=== PATIENT | female | born 1995 | race Two or more races ===

== ENCOUNTER 2019-02-10 20:50 | Emergency (ER) | payer OTHER ==
[~2019-02-10] VITALS: Ht 160 cm; Wt 63.5 kg
[2019-02-10] MEDS: KETOROLAC 30 MG/ML VIAL. IV ONE (21:37)
--- NOTE | 2019-02-10 21:37 | PHYS DOC ---
Past History Past Medical History: No Pertinent History Past Surgical History: No Surgical History Alcohol Use: None Drug Use: None Adult General Chief Complaint Chief Complaint: HEADACHE HPI HPI Patient is a 23-year-old female who presents with numerous complaints to include headache, dizziness and generalized weakness. Patient states the symptoms started this morning. Patient states her last menstrual cycle was early this month and admits that she could be . She rates pain in her head is mild at a 3 out of 10. She states that what had her concerned that she felt like she was going to faint earlier today. She does admit some nausea but is had no vomiting or diarrhea.[] Review of Systems Review of Systems Constitutional: Denies fever or chills [] Respiratory: Denies cough or shortness of breath [] Cardiovascular: No additional information not addressed in HPI [] GI: Denies abdominal pain, vomiting or diarrhea [] : Denies dysuria or hematuria [] Neurologic: Complains of headache without focal weakness or sensory changes [] Current Medications Current Medications Current Medications Medications (Trade) Dose Ordered Sig/Oly Start Time Stop Time Status Last Admin Dose Admin Ketorolac Tromethamine (Toradol 30mg Vial) 30 mg 1X ONCE 02/10/19 21:15 02/10/19 21:16 UNV Ondansetron HCl (Zofran) 4 mg 1X ONCE 02/10/19 21:15 02/10/19 21:16 UNV Sodium Chloride 1,000 ml @ 1,000 mls/hr Q1H 02/10/19 21:15 02/10/19 22:14 UNV Allergies Allergies Allergies Coded Allergies Type Severity Reaction Last Updated Verified Sulfa (Sulfonamide Antibiotics) Allergy Severe Anaphylaxis 02/10/19 Yes Physical Exam Physical Exam Constitutional: Well developed, well nourished, no acute distress, non-toxic appearance. [] Neck: Normal range of motion, no tenderness, supple, no stridor. [] Cardiovascular:Heart rate regular rhythm, no murmur [] Lungs & Thorax: Bilateral breath sounds clear to auscultation [] Abdomen: Bowel sounds normal, soft, no tenderness. [] Skin: Warm, dry, no erythema, no rash. [] Extremities: No tenderness, no cyanosis, no clubbing, ROM intact, no edema. [] Neurologic: Alert and oriented X 3, no focal deficits noted. [] Current Patient Data Vital Signs Vital Signs Date Time Temp Pulse Resp B/P (MAP) Pulse Ox O2 Delivery O2 Flow Rate FiO2 02/10/19 21:07 98.5 83 18 100 Room Air EKG EKG [] Radiology/Procedures Radiology/Procedures [] Course & Med Decision Making Course & Med Decision Making Pertinent Labs and Imaging studies reviewed. (See chart for details) [] Dragon Disclaimer Dragon Disclaimer This electronic medical record was generated, in whole or in part, using a voice recognition dictation system. Departure Departure: Impression: Primary Impression: Headache Additional Impressions: Back pain Dehydration Disposition: HOME, SELF-CARE Condition: STABLE Referrals: PCP,UNKNOWN (PCP) Patient Instructions: Back Pain, Adult, [id number], Dehydration, Adult, Headache, FAQs Scripts Tramadol Hcl (TRAMADOL HCL) 50 Mg Tablet 50 MG PO PRN Q6HRS PRN for PAIN, #12 TAB Prov: MICHAEL IBRAHIM Jr. DO 02/10/19 Ondansetron Hcl (ZOFRAN) 4 Mg Tablet 4 MG PO Q6HRS PRN for NAUSEA, #12 TAB Prov: MICHAEL IBRAHIM Jr. DO 02/10/19 Problem Qualifiers Primary Impression: Headache Headache type: unspecified Headache chronicity pattern: unspecified pattern Intractability: not intractable Qualified Codes: R51 - Headache Additional Impressions: Back pain Back pain location: thoracic back pain Chronicity: acute Back pain laterality: unspecified Qualified Codes: M54.6 - Pain in thoracic spine MICHAEL IBRAHIM Jr. DO Feb 10, 2019 21:37
[2019-02-10] MEDS: IV NORMAL SALINE 1,000ML 1,000 ML IV SCH (21:38)
[2019-02-10] MEDS: ONDANSETRON PF 4 MG/2 ML VIAL. IV ONE (21:40)
[2019-02-10 22:28] LABS: BASO # 0.1 x10^3/uL (0.0-0.2); BASO % 1 % (0-3); EOS # 0.5 x10^3/uL (0.0-0.7); EOS % 6 % (0-3); HEMOGLOBIN 14.4 g/dL (12.0-15.5); LYMPH # 3.7 x10^3/uL (1.0-4.8); LYMPH % 44 % (24-48); MEAN CORPUSCULAR HEMOGLOBIN 30 pg (25-35); MEAN CORPUSCULAR HGB CONC 33 g/dL (31-37); MEAN CORPUSCULAR VOLUME 88 fL (79-100); MONO # 0.6 x10^3/uL (0.0-1.1); MONO % 7 % (0-9); NEUT # 3.5 x10^3uL (1.8-7.7); NEUT % 43 % (31-73); PLATELET COUNT 185 x10^3/uL (140-400); RED BLOOD COUNT 4.87 x10^6/uL (3.50-5.40); RED CELL DISTRIBUTION WIDTH 12.4 % (11.5-14.5); WHITE BLOOD COUNT 8.3 x10^3/uL (4.0-11.0)
[2019-02-10 22:40] LABS: ALBUMIN/GLOBULIN RATIO 1.1 (1.0-1.7); CALCIUM 9.5 mg/dL (8.5-10.1); CREATININE 0.8 mg/dL (0.6-1.0); GFR 90.5; POTASSIUM 3.5 mmol/L (3.5-5.1); TOTAL BILIRUBIN 0.2 mg/dL (0.2-1.0); TOTAL PROTEIN 7.7 g/dL (6.4-8.2)
[2019-02-10 22:48] LABS: BILIRUBIN,URINE NEG (NEG); CLARITY,URINE CLEAR; COLOR,URINE STRAW; GLUCOSE,URINE NEG (NEG)
[2019-02-10 22:49] LABS: BACTERIA,URINE 0 /HPF (0-FEW); NITRITE,URINE NEG (NEG); RBC,URINE 0 /HPF (0-2); SQUAMOUS EPITHELIAL CELL,UR OCC /LPF; UROBILINOGEN,URINE 0.2 mg/dL (0.2 mg/dL); WBC,URINE OCC /HPF (0-4)
[2019-02-10 22:51] LABS: PREG TEST PT QUAL NEGATIVE (NEG)
[2019-02-10 23:07] VITALS: BP 104/68
[2019-02-10] MEDS ORDERED: ONDA4TAB7 PO (23:10)
[2019-02-10] MEDS ORDERED: TRAM50TA PO (23:10)
== END 2019-02-10 23:23 | disposition home or self-care (01) ==
LOC: ER 20:50
DX: R51 Headache (principal); E86.0 Dehydration; M54.6 Pain in thoracic spine; Z88.2 Allergy status to sulfonamides
CPT/HCPCS: 36415; 80053; 81001; 83690; 84703; 85025; 96361; 96374; 96375; 99284; J1885; J2405; J7030

== ENCOUNTER 2019-05-27 17:25 | Emergency (ER) | payer OTHER ==
[~2019-05-27 17:25] MED LIST: ONDA4TAB7 PO; TRAM50TA PO
[2019-05-27] MEDS ORDERED: IV NORMAL SALINE 500ML 500 ML IV SCH (18:15)
--- NOTE | 2019-05-27 18:16 | PHYS DOC ---
Past History Past Medical History: No Pertinent History Past Surgical History: No Surgical History Smoking: Non-smoker Alcohol Use: None Drug Use: None Adult General Chief Complaint Chief Complaint: VAGINAL PROBLEM HPI HPI Patient is a 23-year-old female presents with sudden onset pelvic pain approximately 2 hours prior to arrival. No bleeding or discharge. She is approximately 8 weeks . She had an ultrasound performed at her ANESTHESIOLOGY TECHNOLOGIST office yesterday and the size was not consistent with dates, and there was no heartbeat noted at that time. She denies any trauma. Denies any dysuria or hematuria. This is her first . She is uncertain as to her blood type. No relief with Tylenol for the pain.[] Review of Systems Review of Systems Constitutional: Denies fever or chills [] Eyes: Denies change in visual acuity, redness, or eye pain [] HENT: Denies nasal congestion or sore throat [] Respiratory: Denies cough or shortness of breath [] Cardiovascular: No chest pain or palpitations[] GI: Denies abdominal pain, nausea, vomiting, bloody stools or diarrhea [] : Denies dysuria or hematuria, see history of present illness [] Musculoskeletal: Denies back pain or joint pain [] Integument: Denies rash or skin lesions [] Neurologic: Denies headache, focal weakness or sensory changes [] Endocrine: Denies polyuria or polydipsia [] All other systems were reviewed and found to be within normal limits, except as documented in this note. Allergies Allergies Allergies Coded Allergies Type Severity Reaction Last Updated Verified Sulfa (Sulfonamide Antibiotics) Allergy Severe Anaphylaxis 02/10/19 Yes Physical Exam Physical Exam Constitutional: Well developed, well nourished, no acute distress, non-toxic appearance. [] HENT: Normocephalic, atraumatic, bilateral external ears normal, oropharynx rylan st, no oral exudates, nose normal. [] Eyes: PERRLA, EOMI, conjunctiva normal, no discharge. [] Neck: Normal range of motion, no tenderness, supple, no stridor. [] Cardiovascular:Heart rate regular rhythm, no murmur [] Lungs & Thorax: Bilateral breath sounds clear to auscultation [] Abdomen: Bowel sounds normal, soft, no tenderness, no masses, no pulsatile masses. Pelvic exam performed with job placement counselor: External genitalia, [place]'s glands, urethra, and Bartholin's glands: No lesions, no discharge. Vaginal vault: No bleeding, no lesions, no tears. Cervix: No cervical motion tenderness, no nulliparous os, no bleeding[] Skin: Warm, dry, no erythema, no rash. [] Back: No tenderness, no CVA tenderness. [] Extremities: No tenderness, no cyanosis, no clubbing, ROM intact, no edema. [] Neurologic: Alert and oriented X 3, normal motor function, normal sensory function, no focal deficits noted. [] Psychologic: Affect normal, judgement normal, mood normal. [] EKG EKG [] Radiology/Procedures Radiology/Procedures PROCEDURE: OB <14 WKS W/TV Examination: OB <14 WKS W/TV History: Sudden onset of pelvic pain in the past 2 hours. Comparison/Correlation: None Findings: Transabdominal and transvaginal pelvic ultrasound exam was performed. Uterus measures 8 cm x 7.6 x 6.2 cm. Cervical length is 3.2 cm. Single intrauterine gestation is present without heart rate identified. [place]-rump length of 0.46 cm corresponds 6 weeks 1 day gestation. Yolk sac identified. No subchorionic hemorrhage. Right ovary measures 3 cm x 2.4 cm x 1.4 cm. Left ovary measures 2.7 cm x 1.89 x 1.6 cm. No suspicious adnexal mass lesions. Normal ovarian flow noted on spectral and color Doppler imaging. Impression: Intrauterine gestation corresponding to 6 weeks 1 day by crown-rump length without detectable heart rate. Nonviable gestation. [] Course & Med Decision Making Course & Med Decision Making Pertinent Labs and Imaging studies reviewed. (See chart for details) ED course: Patient arrived, was placed in bed, and tolerated exam well. She was transported to and from [facility] without any complications. After return of laboratory and imaging studies, these were discussed with patient and her partner who voiced understanding. All questions were answered. She was discharged in improved condition. Medical decision making: This appears to be an inevitable miscarriage given that there is no heart motion detectable. There is no evidence of a septic miscarriage. No evidence of an ectopic . No evidence of urinary tract infection.[] Dragon Disclaimer Dragon Disclaimer This electronic medical record was generated, in whole or in part, using a voice recognition dictation system. Departure Departure: Impression: Primary Impression: Miscarriage Disposition: HOME, SELF-CARE Condition: IMPROVED Referrals: PCP,UNKNOWN (PCP) Patient Instructions: Miscarriage Additional Instructions: Follow-up with your ANESTHESIOLOGY TECHNOLOGIST in 2 days. Your quantitative test level was 39,282 today. This needs to be followed as it goes to 0. This can be performed by your ANESTHESIOLOGY TECHNOLOGIST. Your blood type is O+. Return to the ER if worsening pain or any other concerns. Scripts Hydrocodone Bit/Acetaminophen (NORCO 5-325 TABLET) 1 Each Tablet 1 TAB PO Q4-6HRS for severe pain, #20 TAB Prov: ISAURO NASH DO 05/27/19 ISAURO NASH DO May 27, 2019 18:16
[2019-05-27 18:54] LABS: BASO % 1 % (0-3); EOS # 0.3 x10^3/uL (0.0-0.7); EOS % 4 % (0-3); HEMATOCRIT 39.2 % (36.0-47.0); HEMOGLOBIN 13.1 g/dL (12.0-15.5); LYMPH # 2.2 x10^3/uL (1.0-4.8); LYMPH % 29 % (24-48); MEAN CORPUSCULAR HEMOGLOBIN 30 pg (25-35); MEAN CORPUSCULAR HGB CONC 34 g/dL (31-37); MEAN CORPUSCULAR VOLUME 89 fL (79-100); MONO # 0.5 x10^3/uL (0.0-1.1); MONO % 7 % (0-9); NEUT # 4.6 x10^3uL (1.8-7.7); NEUT % 60 % (31-73); PLATELET COUNT 205 x10^3/uL (140-400); WHITE BLOOD COUNT 7.8 x10^3/uL (4.0-11.0)
[2019-05-27 19:44] LABS: BILIRUBIN,URINE NEG (NEG); CLARITY,URINE CLEAR; COLOR,URINE YELLOW; GLUCOSE,URINE NEG (NEG)
[2019-05-27 19:45] LABS: BACTERIA,URINE 0 /HPF (0-FEW); NITRITE,URINE NEG (NEG); RBC,URINE OCC /HPF (0-2); SQUAMOUS EPITHELIAL CELL,UR FEW /LPF; UROBILINOGEN,URINE 0.2 mg/dL (0.2 mg/dL)
--- NOTE | 2019-05-27 20:04 | RAD ---
Examination: OB <14 WKS W/TV History: Sudden onset of pelvic pain in the past 2 hours. Comparison/Correlation: None Findings: Transabdominal and transvaginal pelvic ultrasound exam was performed. Uterus measures 8 cm x 7.6 x 6.2 cm. Cervical length is 3.2 cm. Single intrauterine gestation is present without heart rate identified. [place]-rump length of 0.46 cm corresponds 6 weeks 1 day gestation. Yolk sac identified. No subchorionic hemorrhage. Right ovary measures 3 cm x 2.4 cm x 1.4 cm. Left ovary measures 2.7 cm x 1.89 x 1.6 cm. No suspicious adnexal mass lesions. Normal ovarian flow noted on spectral and color Doppler imaging. Impression: Intrauterine gestation corresponding to 6 weeks 1 day by crown-rump length without detectable heart rate. Nonviable gestation. Electronically signed by: Marino Carnes MD (05/27/2019 8:01 PM) [facility]
[2019-05-27] MEDS ORDERED: HYDR-3165 PO (20:29)
[2019-05-27 20:42] VITALS: BP 99/62
== END 2019-05-27 20:42 | disposition home or self-care (01) ==
LOC: ER 17:25
DX: O03.9 Complete or unspecified spontaneous abortion without complication (principal); Z88.2 Allergy status to sulfonamides
CPT/HCPCS: 36415; 76801; 76817; 81001; 81025; 84702; 85025; 86900; 86901; 87491; 87591; 99285; Q0111

== ENCOUNTER 2020-04-04 16:29 | Emergency (ER) | payer OTHER ==
[~2020-04-04] VITALS: Ht 160 cm; Wt 63.6 kg
[~2020-04-04 16:29] MED LIST changes: +HYDR-3165 PO
--- NOTE | 2020-04-04 17:11 | PHYS DOC ---
Past History Past Medical History: No Pertinent History Past Surgical History: No Surgical History Smoking: Non-smoker Alcohol Use: None Drug Use: None General Adult EDM: Chief Complaint: TEST HPI: HPI: Patient is a 24 year old F who presents with 2 weeks of fatigue, nausea, head ache, and muscle aches. She denies fever or chills. She states she has been taking aspirin for her head pain and it has helped. Her last menstrual period was 03/07-03/10 and she recently stopped taking her control. She also complains of a productive cough that began 4 days ago. She states she is coughing a few times per day. She complains of 2 days of hard and sensitive breasts and crampy lower abdominal pain. She denies dysuria, frequency, and vaginal discharge. Review of Systems: Review of Systems: Constitutional: Denies fever or chills Eyes: Denies redness or eye pain HENT: Denies nasal congestion or sore throat Respiratory: Denies shortness of breath; reports cough. Cardiovascular: Denies chest pain or palpitations GI: Denies vomiting; reports abdominal pain and nausea. : Denies dysuria or hematuria Musculoskeletal: Denies back pain or joint pain Integument: Denies rash or skin lesions Neurologic: Denies focal weakness or sensory changes Complete systems were reviewed and found to be within normal limits, except as documented in this note. Allergies: Allergies: Allergies Coded Allergies Type Severity Reaction Last Updated Verified Sulfa (Sulfonamide Antibiotics) Allergy Severe Anaphylaxis 02/10/19 Yes Physical Exam: PE: Constitutional: Well developed, well nourished, no acute distress. HENT: Normocephalic, atraumatic Eyes: Conjunctiva normal, no discharge Neck: Normal range of motion, supple Lungs & Thorax: No respiratory distress, equal chest rise and fall. CTAB. Abdomen: Soft, mildly tender to palpation in both lower quadrants. Skin: Warm, dry, no erythema, no rash Back: Paraspinal tenderness in lumbar region, no CVA tenderness Extremities: No tenderness, no edema Neurologic: Alert and oriented X 3, no focal deficits noted Psychologic: Affect normal, judgment normal EKG: EKG: [] Radiology/Procedures: Radiology/Procedures: [] Course & Med Decision Making: Course & Med Decision Making 24-year-old female presented here for 2 weeks duration of fatigue, nausea, headache, and muscle aches. test negative. pertinent Labs and Imaging studies reviewed. (See chart for details) [] Dragon Disclaimer: Dragon Disclaimer: This electronic medical record was generated, in whole or in part, using a voice recognition dictation system. Departure Departure: Impression: Primary Impression: Sinusitis Qualified Codes: J01.90 - Acute sinusitis, unspecified Additional Impressions: Headache Qualified Codes: R51 - Headache Suspected 2019 novel coronavirus infection Encounter for test, result negative Disposition: HOME/RESIDENCE PRIOR TO ADM Condition: STABLE Referrals: VERENICE DOS SANTOS (PCP) Patient Instructions: Headache, FAQs, Sinusitis, [id number] Additional Instructions: Definicin Se le realiz la prueba de deteccin del COVID-19 o se le diagnostic dicha enfermedad. Es sayda infeccin ocasionada por un nuevo tipo de coronavirus. En la mayora de los casos, el COVID-19 provoca sntomas similares a los del resfriado. En algunas personas, puede ocasionar sntomas ms graves, lisa problemas respiratorios. No existe un tratamiento para el virus COVID-19. El cuerpo elimina la infeccin con el tiempo. El cuidado personal ayuda a aliviar el malestar. Pasos que debe seguir 1. Cuidados personales Descanse cuando sea necesario. Los hbitos saludables pueden ayudarlo a sentirse mejor. Algunas medidas para lograr cambios incluyen lo siguiente: - Elija alimentos saludables, lisa frutas y verduras. Lyndsey abundante cantidad de agua anam todo el da. - Duerma jason por la noche. - Si fuma, intente no hacerlo. [place] ayudar a mejorar la respiracin. - Evite el alcohol. 2. Mantenga sanos a los dems El virus puede contagiarse a otras personas. Cada vez que estornuda o tose, se liberan gotitas. Las gotitas pueden entrar en la boca, la nariz o los ojos de las personas que se encuentran cerca de usted y ocasionar la infeccin. Para reducir las probabilidades de contagiar el virus COVID-19 a otros, tenga en cuenta lo siguiente: - Qudese en casa el tiempo que el mdico se lo indique. Es posible que deba quedarse en casa hasta que la enfermedad desaparezca. Salga nicamente para recibir atencin mdica o en ferny de urgencia. - Evite las reas pblicas, los eventos o el transporte pblico. No reanude las actividades laborales o escolares hasta que el mdico lo autorice. - Llame previamente si necesita asistir a un centro mdico. Avise que es posible que haya contrado COVID-19. [place] ayudar a que le indiquen adonde debe dirigirse. Roberto pueden pedirle que use sayda mscara facial cuando vaya al consultorio. Si llama a los servicios de asistencia mdica de urgencias, avseles que es posible que haya contrado COVID-19. Mientras est en casa: - Evite el contacto directo con otras personas. Mantngase a sayda distancia aproximada de 2 metros. Si es posible, pasen la mayor parte del tiempo en pizano separadas. - Use sayda mscara facial si estar en contacto directo con otras personas, por ejemplo, si compartir sayda habitacin o un vehculo. - Pida a alguien que limpie las superficies comunes de la casa. Limpie picaportes, mesadas y lavamanos con limpiadores domsticos todos los rey. - Al toser o estornudar, cbrase con un pauelo de papel. Despus de usarlo, deschelo de inmediato. Si no tiene un pauelo de papel, tosa o estornude en el pliegue del codo. - Lvese las trell con frecuencia. Lvese las trell despus de estornudar o toser. Lvese con agua y jabn anam, al menos, 20 segundos. Si no dispone de agua y jabn, use un limpiador de trell a base de alcohol. - No cocine para otros. Evite compartir objetos personales, lisa tenedores, cucharas o cepillos de dientes. - Mientras est enfermo, evite el contacto directo con las mascotas. No hay indicios de si el virus se transmite a las mascotas. Esta es sayda medida de seguridad que debe tenerse en cuenta hasta que se sepa ms acerca de angelina virus. El aislamiento puede ser frustrante. La interaccin social puede ayudar. Mantngase en contacto con amigos y familiares por telfono u otros medios tecnolgicos. Puede interactuar con otras personas en el hogar, waldo mantenga sayda distancia anglin de aproximadamente 2 metros. Seguimiento Las pruebas para confirmar la presencia del COVID-19 pueden demorar algunos rey. Es posible que deba seguir los pasos mencionados anteriormente hasta que estn los resultados de las pruebas. Lo llamarn del consultorio mdico para saber si lira habido algn cambio en sanabria jennifer. Tambin le avisarn cuando pueda volver a estar cerca de otras personas. Problemas a los que debe estar atento Comunquese con el mdico si no se recupera segn lo previsto o si tiene problemas lisa los siguientes: - Dificultad para respirar - Dolor de pecho - Empeoramiento de los sntomas Si kenny que tiene sayda urgencia, llame a los servicios de asistencia mdica de urgencias de inmediato. As taken from [employer] Justification of Admission: Justification of Admission: Justification of Admission Dx: N/A LEONARDO SUNG DO Apr 04, 2020 17:11
[2020-04-04 17:18] VITALS: BP 125/77
[2020-04-04] MEDS ORDERED: DEXAMETHASONE 4 MG TABLET PO ONE (17:30)
== END 2020-04-04 17:34 | disposition home or self-care (01) ==
LOC: ER 16:29
DX: Z32.02 Encounter for pregnancy test, result negative (principal); J32.9 Chronic sinusitis, unspecified; R10.31 Right lower quadrant pain; R10.32 Left lower quadrant pain; Z20.828 Contact with and (suspected) exposure to other viral communicable diseases; Z88.2 Allergy status to sulfonamides
CPT/HCPCS: 81025; 99283; U0003

== ENCOUNTER 2021-02-14 06:20 | Emergency (ER) | payer OTHER ==
[~2021-02-14] VITALS: Ht 160 cm; Wt 69.1 kg
--- NOTE | 2021-02-14 06:38 | PHYS DOC ---
Past History Past Medical History: No Pertinent History Past Surgical History: No Surgical History Smoking: Non-smoker Alcohol Use: None Drug Use: None General Adult EDM: Chief Complaint: ABDOMINAL PAIN IN HPI: HPI: 25-year-old female who is 6 to 8 weeks presents with vaginal pain and concern for dehydration. Patient felt like she was dehydrated yesterday and had some mild vaginal cramping. She drank water and electrolytes to try to rehydrate herself. This morning, the patient is having more of this cramping pain. She denies any vaginal discharge or bleeding. She still feels like she might be dehydrated. She denies nausea, vomiting, or diarrhea. She had a misca rriage a couple of years ago and is generally worried. Denies fever or chills. Review of Systems: Review of Systems: Constitutional: Denies fever or chills Eyes: Denies change in visual acuity HENT: Denies nasal congestion or sore throat Respiratory: Denies cough or shortness of breath Cardiovascular: Denies chest pain or edema GI: Denies abdominal pain, nausea, vomiting, bloody stools or diarrhea : Vaginal cramping Musculoskeletal: Denies back pain or joint pain Integument: Denies rash Neurologic: Denies headache, focal weakness or sensory changes Endocrine: Denies polyuria or polydipsia Lymphatic: Denies swollen glands Psychiatric: Denies depression or anxiety Current Medications: Current Meds: Current Medications Medications (Trade) Dose Ordered Sig/Oly Start Time Stop Time Status Last Admin Dose Admin Sodium Chloride 1,000 ml @ 1,000 mls/hr 1X ONCE 02/14/21 07:00 02/14/21 07:59 Allergies: Allergies: Allergies Coded Allergies Type Severity Reaction Last Updated Verified Sulfa (Sulfonamide Antibiotics) Allergy Severe Anaphylaxis 02/10/19 Yes Physical Exam: PE: Constitutional: Well developed, well nourished, no acute distress, non-toxic appearance. [] HENT: Normocephalic, atraumatic, bilateral external ears normal, oropharynx moist, no oral exudates, nose normal. [] Eyes: PERRLA, EOMI, conjunctiva normal, no discharge. [] Neck: Normal range of motion, no tenderness, supple, no stridor. [] Cardiovascular:Heart rate regular rhythm, no murmur [] Lungs & Thorax: Bilateral breath sounds clear to auscultation [] Abdomen: Bowel sounds normal, soft, no tenderness, no masses, no pulsatile masses. [] Skin: Warm, dry, no erythema, no rash. [] Back: No tenderness, no CVA tenderness. [] Extremities: No tenderness, no cyanosis, no clubbing, ROM intact, no edema. [] Neurologic: Alert and oriented X 3, normal motor function, normal sensory function, no focal deficits noted. [] Psychologic: Affect normal, judgement normal, mood concerned. [] EKG: EKG: [] Radiology/Procedures: Radiology/Procedures: [] Impressions: EXAM: OBSTETRIC ULTRASOUND, <14 WEEKS. HISTORY: Pelvic pain in . COMPARISON: None. FINDINGS: Sonographic evaluation of the pelvis was performed transabdominally and transvaginally. The uterus is anteverted and measures 10.7 x 6.9 x 5.3 cm. A large heterogeneous mass within the endometrium appears mostly solid and measures approximately 8.2 x 4.8 cm. No clear parts are identified, though portions are consistent with placenta from a more advanced gestation. There is no well-defined gestational sac. The right ovary measures 3.1 x 2.8 x 2.4 cm. A dominant follicle on the right may represent a corpus luteum. The left ovary measures 3.4 x 2.9 x 1.9 cm. There is normal Doppler flow bilaterally. There is no adnexal mass. There is no significant free fluid. IMPRESSION: 1. An 8 x 5 cm heterogeneous mostly solid mass within the endometrium may represent products of conception in the setting of a missed miscarriage from a more advanced gestation. Alternatively, this may represent extensive complicated blood products about a nonviable early gestation. Correlation with quantitative beta hCG is recommended to exclude gestational trophoblastic disease. Ongoing management is recommended. These findings were called to Dr. Jauregui by Marvin Pritchard on 02/14/2021 at 8:10 AM. Electronically signed by: Darryl Pritchard MD (02/14/2021 8:16 AM) [facility] DICTATED AND SIGNED BY: CHAYA PRITCHARD MD DATE: 02/14/21 0804 CC: ELVER JAUREGUI DO; VERENICE DOS SANTOS PSYCHIATRIC ORDERLY ~MTH0 0 Heart Score: C/O Chest Pain: N/A Risk Factors: Risk Factors: DM, Current or recent (<one month) smoker, HTN, HLP, family history of CAD, obesity. Risk Scores: Score 0 - 3: 2.5% MACE over next 6 weeks - Discharge Home Score 4 - 6: 20.3% MACE over next 6 weeks - Admit for Clinical Observation Score 7 - 10: 72.7% MACE over next 6 weeks - Early Invasive Strategies Course & Med Decision Making: Course & Med Decision Making Pertinent Labs and Imaging studies reviewed. (See chart for details) The patient's labs are unremarkable. Her urine test is positive. Her hCG is greater than 195,000. Ultrasound shows abnormal finding of 8 cm x 5 cm mass. Differential is missed spontaneous but includes trophoblastic disease. See official read for more details. I will consult [facility]. I spoke with the patient's OB office, Dr. Biswas and they would like the patient to be discharged from the emergency room and go straight over to their office. He made the patient aware that this is likely a molar and that it was important that she go from here over to their office as she will need a procedure done sooner rather than later. Patient states verbal understanding. She is stable for discharge at this time. [] Dragon Disclaimer: Dragon Disclaimer: This electronic medical record was generated, in whole or in part, using a voice recognition dictation system. Departure Departure: Impression: Primary Impression: Molar Disposition: HOME / SELF CARE / HOMELESS Condition: STABLE Referrals: VERENICE DOS SANTOS (PCP) Patient Instructions: Molar Additional Instructions: Please go to your [facility] office as soon as you are discharged from the emergency room. They are expecting you. ELVER JAUREGUI DO Feb 14, 2021 06:38
[2021-02-14] MEDS ORDERED: IV NORMAL SALINE 1,000ML 1,000 ML IV ONE (07:00)
[2021-02-14 07:29] LABS: BASO % 1 % (0-3); EOS # 0.3 x10^3/uL (0.0-0.7); EOS % 3 % (0-3); HEMATOCRIT 36.7 % (36.0-47.0); HEMOGLOBIN 12.2 g/dL (12.0-15.5); LYMPH # 2.4 x10^3/uL (1.0-4.8); LYMPH % 28 % (24-48); MEAN CORPUSCULAR HEMOGLOBIN 29 pg (25-35); MEAN CORPUSCULAR HGB CONC 33 g/dL (31-37); MEAN CORPUSCULAR VOLUME 87 fL (79-100); MONO # 0.5 x10^3/uL (0.0-1.1); MONO % 5 % (0-9); NEUT # 5.4 x10^3uL (1.8-7.7); NEUT % 63 % (31-73); PLATELET COUNT 186 x10^3/uL (140-400); RED CELL DISTRIBUTION WIDTH 13.4 % (11.5-14.5); WHITE BLOOD COUNT 8.6 x10^3/uL (4.0-11.0)
[2021-02-14 07:45] LABS: CREATININE 0.7 mg/dL (0.6-1.0); GFR 103.7; POTASSIUM 3.7 mmol/L (3.5-5.1)
[2021-02-14 07:48] LABS: ALBUMIN 3.3 g/dL (3.4-5.0); TOTAL BILIRUBIN 0.3 mg/dL (0.2-1.0); TOTAL PROTEIN 6.5 g/dL (6.4-8.2)
[2021-02-14 08:00] LABS: BACTERIA,URINE 0 /HPF (0-FEW); BILIRUBIN,URINE NEG (NEG); CLARITY,URINE CLEAR; COLOR,URINE YELLOW; GLUCOSE,URINE NEG (NEG); NITRITE,URINE NEG (NEG); RBC,URINE 0 /HPF (0-2); SQUAMOUS EPITHELIAL CELL,UR FEW /LPF; UROBILINOGEN,URINE 0.2 mg/dL (0.2 mg/dL); WBC,URINE 0 /HPF (0-4)
--- NOTE | 2021-02-14 08:19 | RAD ---
EXAM: OBSTETRIC ULTRASOUND, <14 WEEKS. HISTORY: Pelvic pain in . COMPARISON: None. FINDINGS: Sonographic evaluation of the pelvis was performed transabdominally and transvaginally. The uterus is anteverted and measures 10.7 x 6.9 x 5.3 cm. A large heterogeneous mass within the endo metrium appears mostly solid and measures approximately 8.2 x 4.8 cm. No clear parts are identi fied, though portions are consistent with placenta from a more advanced gestation. There is no well-d efined gestational sac. The right ovary measures 3.1 x 2.8 x 2.4 cm. A dominant follicle on the right may represent a corpus luteum. The left ovary measures 3.4 x 2.9 x 1.9 cm. There is normal Doppler flow bilaterally. There i s no adnexal mass. There is no significant free fluid. IMPRESSION: 1. An 8 x 5 cm heterogeneous mostly solid mass within the endometrium may represent products of kasi ption in the setting of a missed miscarriage from a more advanced gestation. Alternatively, this may represent extensive complicated blood products about a nonviable early gestation. Correlation with qu antitative beta hCG is recommended to exclude gestational trophoblastic disease. Ongoing management i s recommended. These findings were called to Dr. Tolentino by Marvin Pritchard on 02/14/2021 at 8:10 AM. Electronically signed by: Darryl Pritchard MD (02/14/2021 8:16 AM) [facility]
[2021-02-14 09:38] VITALS: BP 101/61
== END 2021-02-14 09:40 | disposition home or self-care (01) ==
LOC: ER 06:20
DX: O02.0 Blighted ovum and nonhydatidiform mole (principal); Z88.2 Allergy status to sulfonamides; Z3A.08 8 weeks gestation of pregnancy
CPT/HCPCS: 36415; 76801; 76817; 80053; 81001; 81025; 84702; 85025; 96360; 99284; J7030